=== PATIENT | male | born 1955 ===

== ENCOUNTER 2016-12-22 06:37 | Observation (INO) | payer OTHER ==
[2016-12-22 06:38] VITALS: BMI 23.6
--- NOTE | 2016-12-22 08:17 | ED PDOC ---
Lower Extremity Pain/Injury Time Seen by Provider: 12/22/16 07:03 Chief Complaint (Nursing): Lower Extremity Problem/Injury Chief Complaint (Provider): right ankle History Per: Patient History/Exam Limitations: no limitations Onset/Duration Of Symptoms: Days (x 1) Current Symptoms Are (Timing): Still Present Additional Complaint(s): Sivakumar Wall is a 61 year old male, with a previous medical history of hypertension and hypercholesterolemia, who presents to the ED with complaints of not being able to bend his right ankle after missing a step yesterday. Patient reports landing on his foot in a hyperextended position and hearing a pop. He denies any pain to the leg or foot. Of note, patient reports undergoing tendonitis of the right ankle 1 year ago. PMD: none provided Past Medical History Reviewed: Historical Data, Nursing Documentation, Vital Signs Vital Signs: Last Vital Signs Temp 97.9 F 12/22/16 06:51 Pulse 87 12/22/16 06:51 Resp 16 12/22/16 06:51 BP 160/91 H 12/22/16 06:51 Pulse Ox 99 12/22/16 06:51 - Medical History PMH: Anemia, Arthritis, Asthma, HTN, Hypercholesterolemia, Hyperlipidemia, Rheumatoid Arthritis Denies: Chronic Kidney Disease - Surgical History Surgical History: Endoscopy - Family History Family History: States: Unknown Family Hx - Home Medications Home Medications: Ambulatory Orders Medication Instructions Recorded Esomeprazole Magnesium [Nexium] 40 mg PO DAILY 04/29/15 Montelukast [Singulair] 10 mg PO DAILY 04/29/15 Tramadol Hydrochloride [Tramadol] 50 mg PO DAILY PRN 04/29/15 Zolpidem Tartrate [Ambien] 5 mg PO DAILY 04/29/15 Cephalexin [cephalexin] 500 mg PO TID 11/01/15 Cyclobenzaprine [Flexeril] 10 mg HS 11/01/15 Methylprednisolone [Medrol Dose 4 mg PO ASDIR 11/01/15 Pack (21 tabs)] Omega3,5,6,7,9 No.1/Drew Oil 1 mg ASDIR 11/01/15 [Complete Felch Softgel] Oxycodone HCl/Acetaminophen 1 mg PO Q6 PRN 11/01/15 [Percocet 5-325 mg Tablet] Ciprofloxacin HCl [Cipro] 500 mg PO BID 10 Days 03/16/16 Cyclobenzaprine [Cyclobenzaprine 10 mg PO TID #12 tab 08/03/16 HCl] Naproxen [Naprosyn] 500 mg PO Q12H #20 tab 08/03/16 - Allergies Allergies/Adverse Reactions: Allergies Allergy/AdvReac Type Severity Reaction Status Date / Time No Known Allergies Allergy Verified 08/03/16 08:51 Review of Systems ROS Statement: Except As Marked, All Systems Reviewed And Found Negative Musculoskeletal: Positive for: Other (unable to bend right ankle ) Physical Exam - Reviewed Nursing Documentation Reviewed: Yes Vital Signs Reviewed: Yes - Physical Exam Appears: Positive for: Well, Non-toxic, No Acute Distress Skin: Positive for: Normal Color, Warm, Dry Cardiovascular/Chest: Positive for: Regular Rate, Rhythm Respiratory: Positive for: CNT, Normal Breath Sounds Extremity: Positive for: Capillary Refill (< 2 seconds ), Other (Anton test positive right ankle ). Negative for: Tenderness, Calf Tenderness, Deformity, Swelling Neurologic/Psych: Positive for: Alert, Oriented - Laboratory Results Result Diagrams: 12/22/16 11:09 - ECG O2 Sat by Pulse Oximetry: 99 (RA) Pulse Ox Interpretation: Normal - Other Rad XR R ankle X-Ray: Read By Radiologist (No evidence of acute fracture or dislocation.) - CT Scan/US MRI R foot Other Rad Studies (CT/US): Radiology Report Reviewed (Findings consistent with Achilles tendon rupture approximately 3.9 centimeter proximal to the insertion site with mild retraction of the Achilles tendon by approximately 2.6 centimeter. Small to moderate amount right ankle joint effusion.) Medical Decision Making Medical Decision Making: Initial Impression: Achilles tendon tear Initial Plan: * x-ray right ankle * reevaluation Scribe Attestation: Documented by Kailyn Nix, acting as a scribe for Kailyn Escobedo MD. Provider Scribe Attestation: All medical record entries made by the Scribe were at my direction and personally dictated by me. I have reviewed the chart and agree that the record accurately reflects my personal performance of the history, physical exam, medical decision making, and the department course for this patient. I have also personally directed, reviewed, and agree with the discharge instructions and disposition.
--- NOTE | 2016-12-22 10:29 | CP.PCM.CON ---
History of Present Illness - History of Present Illness History of Present Illness: 61 y/o male with a pmhx of HTN and Hypercholesterolemia seen at bedside in the ED after podiatry consultation for right ankle injury. Patient states that yesterday he missed a step walking down the stairs and hypextended his ankle. He states that he heard a pop and has been having pain ambulating on his right extremity ever since. Patient states that last year he had surgery for achilles tendinitis on the same ankle by Dr. Boston. Patient states that he has not eaten or drank anything today. He denies any n/f/v/d/c/sob. Patient denies any other trauma or injuries. pmhx: HTN, Hypercholesterolemia pshx: R foot and ankle surgery 10/25 SH: 1ppd smoker x 30 years (quit 5 years ago) All: NKDA Review of Systems - Constitutional Constitutional: As Per HPI Past Patient History - Past Medical History & Family History Past Medical History?: Yes - Past Social History Smoking Status: Former Smoker - CARDIAC Hx Hypercholesterolemia: Yes Hx Hypertension: Yes - PULMONARY Hx Asthma: Yes - NEUROLOGICAL Hx Neurological Disorder: No - HEENT Hx HEENT Problems: No - RENAL Hx Chronic Kidney Disease: No - ENDOCRINE/METABOLIC Hx Endocrine Disorders: No - HEMATOLOGICAL/ONCOLOGICAL Hx Anemia: Yes - INTEGUMENTARY Hx Dermatological Problems: No - MUSCULOSKELETAL/RHEUMATOLOGICAL Hx Arthritis: Yes Hx Rheumatoid Arthritis: Yes - GASTROINTESTINAL Hx Gastrointestinal Disorders: No - GENITOURINARY/GYNECOLOGICAL Hx Genitourinary Disorders: No - PSYCHIATRIC Hx Psychophysiologic Disorder: No Hx Substance Use: No - SURGICAL HISTORY Hx Musculoskeletal Surgery: Yes (BUNIONECTOMY LEFT FOOT) - ANESTHESIA Hx Anesthesia: Yes Hx Anesthesia Reactions: No Hx Malignant Hyperthermia: No Meds Allergies/Adverse Reactions: Allergies Allergy/AdvReac Type Severity Reaction Status Date / Time No Known Allergies Allergy Verified 08/03/16 08:51 Physical Exam - Constitutional Appears: Well, Non-toxic, No Acute Distress - Extremities Exam Additional comments: Vasc: palpable pedal pulses bilaterally, TG wnl, CFT < 3 sec to all digits neuro: grossly intact derm: mild localized edema to posterior right ankle, no erythema, no echymoses, no open lesions, no acute clinical signs of infection ortho: palpable dell posterior ankle 6 cm proximal to insertion of achilles, positive damon test, pain on ankle PF, DF, mild pain on palpation to achilles tendon distally - Neurological Exam Neurological exam: Alert, Oriented x3 - Psychiatric Exam Psychiatric exam: Normal Affect, Normal Mood Results - Vital Signs Recent Vital Signs: Last Vital Signs Temp 97.9 F 12/22/16 06:51 Pulse 87 12/22/16 06:51 Resp 16 12/22/16 06:51 BP 160/91 H 12/22/16 06:51 Pulse Ox 99 12/22/16 08:20 Assessment & Plan - Assessment and Plan (Free Text) Assessment: 61 y/o male seen in the ED for right achilles tendon rupture Plan: patient evaluated and chart reviewed discussed in detail with attending Dr. Boston labs and vitals reviewed X rays show obliteration of kagers triangle with soft tissue edema posterior right ankle MRI shows increased signal intensity in the distal achilles tendon indicating rupture applied huang compression with webril and hazel to RLE Ordered CBC, BMP, chest x ray, EKG, PT,PTT for medical clearance discussed in detail the possibility of surgical intervention, explained all the risks, benefits, complications of conservative vs. surgical intervention patient to go to OR either today or tomorrow for repair of right achilles tendon pending medical optimization
--- NOTE | 2016-12-22 10:34 | MRI ---
PROCEDURE: MRI of the right foot without contrast. HISTORY: Achilles tendon injury COMPARISON: Comparison is made to the previous study dated 04/23/2015 TECHNIQUE: Sagittal coronal and axial MRI images of the right proximal foot were obtained without IV contrast administration. FINDINGS: There is right Achillis tendon complete tear with mild retraction of the proximal portion of the tendon. The tear is seen approximately 3.9 centimeter proximal to the Achillis insertion site. . No evidence of bone marrow edema to suggest bone contusion or fracture. There is small right ankle joint effusion noted. Small amount of fluid seen at the posterior tibialis tendon suggestive of mild tendinopathy. Subcutaneous inflammatory changes seen at the posterior aspect of the right ankle. IMPRESSION: Findings consistent with Achilles tendon rupture approximately 3.9 centimeter proximal to the insertion site with mild retraction of the Achilles tendon by approximately 2.6 centimeter. Small to moderate amount right ankle joint effusion.
[2016-12-22] MEDS ORDERED: Propofol 10 mg/ml Inj (20 ML) ONE (11:09)
[2016-12-22] MEDS ORDERED: Midazolam 2 MG/2 ML VIAL ONE (11:09)
[2016-12-22 11:31] LABS: BASO % 0.6 % (0.0-2.0); EOS # 0.2 K/uL (0.0-0.7); EOS % 3.5 % (0.0-4.0); HEMATOCRIT 45.8 % (35.0-51.0); LYMPH # 1.8 K/uL (1.0-4.3); LYMPH % 33.9 % (20.0-40.0); MEAN CORPUSCULAR HEMOGLOBIN 30.8 pg (27.0-31.0); MEAN CORPUSCULAR HGB CONC 34.2 g/dL (33.0-37.0); MEAN PLATELET VOLUME 8.4 fl (7.2-11.7); MONO # 0.4 K/uL (0.0-0.8); MONO % 8.2 % (0.0-10.0); NEUT # 2.9 K/uL (1.8-7.0); NEUT % 53.8 % (50.0-75.0); NRBC % 0.1 % (0.0-0.0); RED CELL DISTRIBUTION WIDTH 13.4 % (11.5-14.5); WHITE BLOOD COUNT 5.5 K/uL (4.8-10.8)
--- NOTE | 2016-12-22 11:33 | RAD ---
PROCEDURE: Right Ankle Radiographs. HISTORY: Ankle injury COMPARISON: None FINDINGS: BONES: Normal. No fracture. JOINTS: Normal. No osteoarthritis. Ankle mortise maintained. Talar dome intact SOFT TISSUES: Normal. OTHER FINDINGS: Two screws are seen at the distal portion of the 1st metatarsal bone. IMPRESSION: No evidence of acute fracture or dislocation.
--- NOTE | 2016-12-22 11:44 | RAD ---
HISTORY: OR COMPARISON: Comparison is made to 08/08/2015 FINDINGS: LUNGS: No evidence of new infiltrate or consolidation in the lungs. PLEURA: No significant pleural effusion identified, no pneumothorax apparent. CARDIOVASCULAR: Normal. OSSEOUS STRUCTURES: No significant abnormalities. VISUALIZED UPPER ABDOMEN: Normal. OTHER FINDINGS: None. IMPRESSION: No active disease.
[2016-12-22 11:47] LABS: ALB/GLOB RATIO 1.6 (1.0-2.1); ALKALINE PHOSPHATASE 65 U/L (38-126); ALT/SGPT 39 U/L (21-72); AST/SGOT 41 U/L (17-59); BLOOD UREA NITROGEN 13 mg/dl (9-20); CALCIUM 9.1 mg/dL (8.4-10.2); CARBON DIOXIDE 28 mmol/L (22-30); CHLORIDE 102 mmol/L (98-107); GFR AFRICAN-AMERICAN > 60; GLUCOSE,RANDOM 80 mg/dL (75-110); POTASSIUM 4.3 MMOL/L (3.6-5.0); SODIUM 139 mmol/l (132-148); TOTAL PROTEIN 7.7 G/DL (6.3-8.2)
[2016-12-22 11:48] LABS: PARTIAL THROMBOPLASTIN TIME 31.5 Seconds (25.6-37.1)
[2016-12-22] MEDS ORDERED: ceFAZolin 1 GM in Sodium Chloride 0.9% 100 ML IVPB ONE (12:11)
[2016-12-22] MEDS ORDERED: Bupivacaine 0.5% 50 ML IJ ONE (12:11)
[2016-12-22] MEDS ORDERED: Sodium Chloride 0.9% 500 ML IV SCH (12:15)
--- NOTE | 2016-12-22 12:20 | CP.PCM.HP ---
History of Present Illness - History of Present Illness History of Present Illness: 61 yr old M presented to ED with complaint of right foot limp s/p injury to right heel after he missed a step going down stairs in his home last night. Reports he he heard a "pop" when he missed the step, began to limp favoring the right foot, did not have any pain at that time and continued to ambulate with a limp. He began have pain with ambulation and used a right foot walking boot which he had at home from right ankle and foot surgery he had in 2016 for Hallus Abducto Valgus (HAV) correction and achilles tendon debridement with [place]. He came to ED this AM as he had no improvement in his symptoms overnight. He denies chest pain, SOB, weakness, nausea, dizziness or numbness/ tingling down his Patient has PMHx of HTN, hyperlipidemia, right achilles tendonitis and bilateral HAV, repeat detected HIV RNA viral load (viral load below lower limit of quantitation for assay on 09/30/16). Patient did not eat anything today. PMD: Luca Mcfadden (last appt 3 wks ago) Specialists: Dr. Boston -Podiatry PMHx: HTN, hyperlipidemia, right achilles tendonitis and bilateral HAV, repeat detected HIV RNA viral load (viral load below lower limit of quantitation for assay on 09/30/16) PSurgHx: Hallus Abducto Valgus (HAV) correction and achilles tendon debridement with [facility] in 2016, left HAV in 2012 SocHx: former smoker (quit 5 yrs ago with 20 pack years), denies Etoh and drugs FMHx: noncontributory Meds: Amlodipine 5mg PO QD, Zolpidem 10mg PO QD, Pantoprazole 40mg PO QD, Terazosin 1 mg PO QD, Gabapentin 300mg PO QD Allergies: NKDA ED course: -Right foot xray: No evidence of acute fracture or dislocation, two screws in distal portion of 1st metatarsal bone -Right foot MRI without contrast: complete tear of achilles tendon (see full report) -EKG-pending -CXR- no active disease -Labs: CBC wnl, CMP wnl, coags wnl Present on Admission - Present on Admission Any Indicators Present on Admission: No History of DVT/PE: No History of Uncontrolled Diabetes: No Urinary Catheter: No Decubitus Ulcer Present: No Review of Systems - Review of Systems All systems: reviewed and no additional remarkable complaints except (what is mentioned in HPI) Past Patient History - Past Medical History & Family History Past Medical History?: Yes - Past Social History Smoking Status: Former Smoker - CARDIAC Hx Hypercholesterolemia: Yes Hx Hypertension: Yes - PULMONARY Hx Asthma: Yes - NEUROLOGICAL Hx Neurological Disorder: No - HEENT Hx HEENT Problems: No - RENAL Hx Chronic Kidney Disease: No - ENDOCRINE/METABOLIC Hx Endocrine Disorders: No - HEMATOLOGICAL/ONCOLOGICAL Hx Anemia: Yes - INTEGUMENTARY Hx Dermatological Problems: No - MUSCULOSKELETAL/RHEUMATOLOGICAL Hx Arthritis: Yes Hx Rheumatoid Arthritis: Yes - GASTROINTESTINAL Hx Gastrointestinal Disorders: No - GENITOURINARY/GYNECOLOGICAL Hx Genitourinary Disorders: No - PSYCHIATRIC Hx Psychophysiologic Disorder: No Hx Substance Use: No - SURGICAL HISTORY Hx Musculoskeletal Surgery: Yes (BUNIONECTOMY LEFT FOOT) - ANESTHESIA Hx Anesthesia: Yes Hx Anesthesia Reactions: No Hx Malignant Hyperthermia: No Meds Allergies/Adverse Reactions: Allergies Allergy/AdvReac Type Severity Reaction Status Date / Time No Known Allergies Allergy Verified 08/03/16 08:51 Physical Exam - Constitutional Appears: Well, No Acute Distress - Head Exam Head Exam: ATRAUMATIC, NORMOCEPHALIC - Eye Exam Eye Exam: EOMI, PERRL - ENT Exam ENT Exam: Mucous Membranes Moist - Neck Exam Neck exam: Positive for: Full Rom. Negative for: Lymphadenopathy - Respiratory Exam Respiratory Exam: Clear to Auscultation Bilateral, NORMAL BREATHING PATTERN. absent: Rales, Rhonchi - Cardiovascular Exam Cardiovascular Exam: REGULAR RHYTHM, +S1, +S2 - GI/Abdominal Exam GI & Abdominal Exam: Normal Bowel Sounds, Soft. absent: Distended - Extremities Exam Extremities exam: Positive for: full ROM, pedal edema (right foot mild edema and tenderness to palpation in posterior ankle, mild tenderness with dorsiflexion and plantarflexion, positive [place] test) - Back Exam Back exam: absent: CVA tenderness (L), CVA tenderness (R) - Neurological Exam Neurological exam: Alert, CN II-XII Intact, Oriented x3 - Psychiatric Exam Psychiatric exam: Normal Affect, Normal Mood Results - Vital Signs Recent Vital Signs: Last Vital Signs Temp 97.9 F 12/22/16 06:51 Pulse 87 12/22/16 06:51 Resp 16 12/22/16 06:51 BP 160/91 H 12/22/16 06:51 Pulse Ox 99 12/22/16 08:20 - Labs Result Diagrams: 12/22/16 11:09 12/22/16 11:09 Assessment & Plan - Assessment and Plan (Free Text) Assessment: 61 yr old M admitted for right achilles tendon rupture, was evaluated by orthopedics in ER and is going for right achilles tendon repair today. Patient has PMHx of HTN, hyperlipidemia, right achilles tendonitis and bilateral HAV, repeat detected HIV RNA viral load (viral load below lower limit of quantitation for assay on 09/30/16). His vital signs are stable, EKG and CXR today are wnl, CBC and CMP wnl as well. Patient is medically cleared for right achilles tendon repair. Plan: 1. Right Achilles Tendon Rupture s/p mechanical slip on stairs -acute, stable -MRI right foot without contrast: complete tear right achilles tendon (see full report) -Right foot xray: no acute fractur or dislocation (see full report) -NPO, EKG CXR CBC CMP and coags wnl -Orthopedic consult appreciated: will follow recommendations -pt going to OR today for repair 2. Hypertension -controlled -medications held for now, will resume home meds after surgery 3. Hyperlipidemia -controlled, lipids wnl on 09/30/16 -no medications at this time 4. DVT prophylaxis -patient was ambulating with right foot walking boot -will consider after surgery - Date & Time Date: 12/22/16 Time: 11:30
[2016-12-22] MEDS ORDERED: Succinylcholine 200 mg/10 ml Inj IV ONE (12:49)
[2016-12-22] MEDS ORDERED: Lidocaine Hydrochloride 5 ML INJ ONE (12:50)
[2016-12-22] MEDS ORDERED: Lidocaine 4% (Laryng-O-Jet) Kit MM ONE (12:50)
[2016-12-22] MEDS ORDERED: Bupivacaine 0.5% Inj(30mL) ONE (12:58)
[2016-12-22] MEDS ORDERED: MethylPREDNISolone Depo 40 mg/ml Inj ONE (12:58)
[2016-12-22] MEDS ORDERED: Lidocaine 1% Inj (20ml) ONE (12:58)
[2016-12-22] MEDS ORDERED: Lactated Ringer's 1,000 ML IV ONE (13:29)
[2016-12-22] MEDS ORDERED: ePHEDrine 50 mg/ml Inj ONE (14:32)
[2016-12-22] MEDS ORDERED: Ropivacaine 0.5% 30ML IV ONE (14:52)
[2016-12-22] MEDS ORDERED: HYDROmorphone 0.5 mg/0.5 ml ISec IVP PRN (16:19)
[2016-12-22] MEDS ORDERED: Lactated Ringer's 1,000 ML IV SCH (16:19)
--- NOTE | 2016-12-22 16:20 | PCM.SURG1 ---
Surgeon's Initial Post Op Note - Surgeon's Notes Surgeon: Dr. Boston Supervisor [employer]: Dr. Lara, Dr. Kennedy, Dr. Monroe Type of Anesthesia: General Mask Anesthesia Administered By: Dr. Ramos Pre-Operative Diagnosis: R achilles tendon rupture Operative Findings: see dictation Post-Operative Diagnosis: right achilles tendon rupture Operation Performed: right achilles tendon repair Specimen/Specimens Removed: bone and soft tissue Estimated Blood Loss: EBL {In ML}: 10 Blood Products Given: N/A Drains Used: No Drains Post-Op Condition: Good Date of Surgery/Procedure: 12/22/16 Time of Surgery/Procedure: 14:00
[2016-12-22] MEDS ORDERED: Oxycodone/Acetaminophen 5/325 mg Tab PO PRN ×2 (16:21)
--- NOTE | 2016-12-22 18:48 | PCM.ANESB2 ---
Popliteal Nerve Block - Popliteal Nerve Block Date of Procedure: 12/22/16 Anesthesiologist: Dr. Ramos Pre-Procedure Diagnosis: repair of right achilles tendon Post-Procedure Diagnosis: repair of right achilles tendon Procedure Performed: Popliteal Nerve Block Right - Procedure Popliteal Nerve Block: This procedure was explained to the patient that it is for post-operative pain management. Consent was obtained after a thorough discussion with the patient regarding the benefits and possible complications of local anesthetic block of the sciatic nerve at the popliteal level. The patient was brought to the operating room and standard monitors are applied. Time-out was held with the circulating nurse to confirm the correct surgery and the appropriate block. After the surgery while still under general anesthesia, patient's operative leg was gently raised and supported and the groove in between the biceps femoris and vastus lateralis muscles was carefully palpated. The skin approximately 8cm above the popliteal crease was then marked. The ultrasound transducer was then applied to the posterior thigh approximately 8cm above the popliteal crease in the transverse plane and the sciatic nerve before its division was visualized lateral to the popliteal artery and in between the bicep femoris and semimembranosus/semitendinosus muscles. After identification, the lateral portion of the thigh was prepped with Chloraprep solution. At this point, a # 21 gauge Stimuplex insulated 4 inch needle was inserted into pre-marked area and advanced in a perpendicular direction. The needle was inserted above the ultrasound transducer in-plane towards the sciatic nerve in a [id number] direction. Needle advancement was performed carefully under direct ultrasound visualization. Nerve stimulator was used and dorsiflexion of the left foot was elicited at a current of 0.3 MA. After repeated negative aspiration, 5cc of 0.5% Ropivacaine was injected and this was flowed with 15cc of 0.5% Ropivacaine. Under ultrasound guidance the local anesthetics were observed tenting the epidural sheath and surrounding the roots of the sciatic nerve. The needle was removed intact and sterile dressing was applied. The patient tolerated the popliteal nerve block well with stable vital signs and was awaken from anesthesia. Patient was transported to PACU in stable condition.
[2016-12-23] MEDS ORDERED: Alum-Mag Hydrox-Simethicone Susp (30 mL) PO ONE (03:11)
--- NOTE | 2016-12-23 05:09 | CP.PCM.PCO ---
Addendum Addendum: 12/23/16 04:55 CC: Called for RUQ Pain 61M s/p achilles tendon repair with acute complaint of RUQ pain along lower rib edge. Unfortunately, the patient is declining to elaborate further on the character. Instead he is saying "I'm not supposed to be here" and states he "doesn't want to be rude" but "thank you and good day". Of note prior eval pt denied N/V, radiation of pain, dysuria, back pain, SOB, chest pain. AVSS Voiding Tolerating PO A/P: POD#1 s/p RIGHT Achilles tendon repair with popliteal block with inexplicable RUQ pain not relieved by Mylanta, hemodynamically stable, and PMH non-contributory. Suspect musculoskeletal. - Toradol 30mg, IV, ONCE - Re-eval
[2016-12-23] MEDS ORDERED: Enoxaparin 40 mg Syringe SC STA (08:31)
[2016-12-23 08:52] VITALS: BP 135/78; PULSE 72; RESP 18; TEMP 98; O2SAT 98
--- NOTE | 2016-12-23 09:34 | CP.PCM.PN ---
Subjective - Date & Time of Evaluation Date of Evaluation: 12/23/16 Time of Evaluation: 09:32 - Subjective Subjective: 61 y/o male seen at bedside 1 day s/p Right achilles tendon repair. Patient states taht he had difficulty sleeping last night. Patient states that his pain is well controlled but he is very tired. He denies any other acute events overnight. Patient's RLE is elevated on pillows with ice behind his knee. Splint remains c/d/i. Patient has been eating and voiding normally. He denies any other n/f/v/d/c/sob. Objective - Vital Signs/Intake and Output Vital Signs (last 24 hours): Temp Pulse Resp BP Pulse Ox 98.0 F 72 18 135/78 98 12/23/16 08:30 12/23/16 08:30 12/23/16 08:30 12/23/16 08:30 12/23/16 08:30 - Medications Medications: Current Medications Acetaminophen (Tylenol 325mg Tab) 650 mg PO Q4 PRN PRN Reason: Pain, Mild (1-3) Sodium Chloride (Sodium Chloride 0.9%) 500 mls @ 100 mls/hr IV .Q5H KRISHNA Lactated Ringer's (Lactated Ringer's) 1,000 mls @ 100 mls/hr IV .Q10H KRISHNA Oxycodone/Acetaminophen (Percocet 5/325 Mg Tab) 1 tab PO Q4 PRN PRN Reason: Pain, moderate (4-7) Stop: 12/25/16 16:22 Last Admin: 12/23/16 00:55 Dose: 1 tab Oxycodone/Acetaminophen (Percocet 5/325 Mg Tab) 2 tab PO Q4 PRN PRN Reason: Pain, severe (8-10) Stop: 12/25/16 16:22 - Labs Labs: 12/22/16 11:09 12/22/16 11:09 PT 11.6 Seconds (9.8-13.1) 12/22/16 11:09 INR 1.0 (0.9-1.2) 12/22/16 11:09 APTT 31.5 Seconds (25.6-37.1) 12/22/16 11:09 - Constitutional Appears: Well, Non-toxic, No Acute Distress - Extremities Exam Additional comments: RLE: CFT < 3 sec to all digits, able to wiggle toes splint clean,dry,intact no calf pain or tenderness - Neurological Exam Neurological Exam: Alert, Awake, Oriented x3 - Psychiatric Exam Psychiatric exam: Normal Affect, Normal Mood Assessment and Plan - Assessment and Plan (Free Text) Assessment: 61 y/o male seen at bedside 1 day s/p right achilles tendon repair Plan: patient evaluated and chart reviewed discussed in detail with attending Dr. Boston labs and vitals reviewed; afebrile posterior splint remains c/d/i to RLE continue Ice, elevation continue nonweightbearing with crutches cont. pain medication prn Rx lovenox 40mg SC daily injections x 10 day nursing communication to teach proper use of lovenox injections patient stable from podiatry standpoint patient to follow up with Dr. Boston as outpatient 1 week
--- NOTE | 2016-12-23 09:53 | CP.PCM.DIS ---
Provider - Provider Date of Admission: 12/22/16 08:52 Attending physician: Natacha Ruiz MD Primary care physician: Luca Mcfadden M.D Consults: -Podiatry Time Spent in preparation of Discharge (in minutes): 30 Diagnosis - Discharge Diagnosis (1) Achilles tendon rupture Status: Acute Priority: Medium Hospital Course - Lab Results Lab Results: Most Recent Lab Values WBC 5.5 K/uL (4.8-10.8) 12/22/16 11:09 RBC 5.08 Mil/uL (4.40-5.90) 12/22/16 11:09 Hgb 15.6 g/dL (12.0-18.0) 12/22/16 11:09 Hct 45.8 % (35.0-51.0) 12/22/16 11:09 MCV 90.0 fl (80.0-94.0) 12/22/16 11:09 MCH 30.8 pg (27.0-31.0) 12/22/16 11:09 MCHC 34.2 g/dL (33.0-37.0) 12/22/16 11:09 RDW 13.4 % (11.5-14.5) 12/22/16 11:09 Plt Count 172 K/uL (130-400) 12/22/16 11:09 MPV 8.4 fl (7.2-11.7) 12/22/16 11:09 Neut % (Auto) 53.8 % (50.0-75.0) 12/22/16 11:09 Lymph % (Auto) 33.9 % (20.0-40.0) 12/22/16 11:09 [place] % (Auto) 8.2 % (0.0-10.0) 12/22/16 11:09 Eos % (Auto) 3.5 % (0.0-4.0) 12/22/16 11:09 Baso % (Auto) 0.6 % (0.0-2.0) 12/22/16 11:09 Neut # 2.9 K/uL (1.8-7.0) 12/22/16 11:09 Lymph # 1.8 K/uL (1.0-4.3) 12/22/16 11:09 [place] # 0.4 K/uL (0.0-0.8) 12/22/16 11:09 Eos # 0.2 K/uL (0.0-0.7) 12/22/16 11:09 Baso # 0.0 K/uL (0.0-0.2) 12/22/16 11:09 PT 11.6 Seconds (9.8-13.1) 12/22/16 11:09 INR 1.0 (0.9-1.2) 12/22/16 11:09 APTT 31.5 Seconds (25.6-37.1) 12/22/16 11:09 Sodium 139 mmol/l (132-148) 12/22/16 11:09 Potassium 4.3 MMOL/L (3.6-5.0) 12/22/16 11:09 Chloride 102 mmol/L (98-107) 12/22/16 11:09 Carbon Dioxide 28 mmol/L (22-30) 12/22/16 11:09 Anion Gap 13 (10-20) 12/22/16 11:09 BUN 13 mg/dl (9-20) 12/22/16 11:09 Creatinine 0.8 mg/dL (0.8-1.5) 12/22/16 11:09 Est GFR ( Amer) > 60 12/22/16 11:09 Est GFR (Non-Af Amer) > 60 12/22/16 11:09 Random Glucose 80 mg/dL (75-110) 12/22/16 11:09 Calcium 9.1 mg/dL (8.4-10.2) 12/22/16 11:09 Total Bilirubin 1.0 mg/dl (0.2-1.3) 12/22/16 11:09 AST 41 U/L (17-59) 12/22/16 11:09 ALT 39 U/L (21-72) 12/22/16 11:09 Alkaline Phosphatase 65 U/L (38-126) 12/22/16 11:09 Total Protein 7.7 G/DL (6.3-8.2) 12/22/16 11:09 Albumin 4.7 g/dL (3.5-5.0) 12/22/16 11:09 Globulin 3.0 gm/dL (2.2-3.9) 12/22/16 11:09 Albumin/Globulin Ratio 1.6 (1.0-2.1) 12/22/16 11:09 Blood Type O POSITIVE 12/22/16 11:09 Blood Type Confirm O POSITIVE 12/22/16 11:31 Antibody Screen Negative 12/22/16 11:09 BBK History Checked No verified bt 12/22/16 11:09 - Hospital Course Hospital Course: 61 yr old M admitted for acute right achilles tendon rupture, is POD #1 s/p repair of right achilles tendon. Patient is stable, no acute events overnight, afebrile. Will follow up with Dr. Boston as outpatient in 1 week and with his PMD Dr. Bryant within 1-2 weeks. Patient was discharged with Rx for Keflex 500mg PO TID x 7days, Lovenox 40mg SC QD x 10days, Percocet 1 tab PO Q4-6 PRN for pain. - Date & Time of H&P Date of H&P: 12/22/16 Time of H&P: 11:19 Discharge Exam - Head Exam Head Exam: ATRAUMATIC, NORMOCEPHALIC - Eye Exam Eye Exam: EOMI, PERRL - ENT Exam ENT Exam: Mucous Membranes Moist - Neck Exam Neck exam: Full Rom - Respiratory Exam Respiratory Exam: Clear to PA & Lateral, NORMAL BREATHING PATTERN - Cardiovascular Exam Cardiovascular Exam: REGULAR RHYTHM, +S1, +S2 - Extremities Exam Extremities exam: normal capillary refill (throughout, right foot in splint (c/d /i), can wiggle all toes) - Back Exam Back exam: absent: CVA tenderness (L), CVA tenderness (R) - Neurological Exam Neurological exam: Alert, CN II-XII Intact, Oriented x3 - Psychiatric Exam Psychiatric exam: Normal Affect, Normal Mood - Skin Skin Exam: Dry, Intact, Normal Color, Warm Discharge Plan - Discharge Medications Prescriptions: Cephalexin [Keflex] 500 mg PO TID 7 Days oxyCODONE/Acetaminophen [Percocet 5/325 mg Tab] 1 tab PO Q4 PRN #30 tab PRN Reason: Pain, Moderate (4-7) - Follow Up Plan Condition: STABLE Disposition: HOME/ ROUTINE Instructions: Achilles Tendon Rupture (GEN), Achilles Tendon Repair (DC) Additional Instructions: -Follow up with Dr. Boston within 1 week. -Follow up with your PMD within 1 week. Referrals: Chi Botson MD [Staff Provider] -
--- NOTE | 2016-12-23 11:52 | RAD ---
PROCEDURE: Right Ankle Radiographs. HISTORY: Follow-up right ankle surgery. Status post repair right Achilles tendon rupture. COMPARISON: December 22, 2016. FINDINGS: BONES: Normal. No fracture. JOINTS: Normal. No osteoarthritis. Ankle mortise maintained. Talar dome intact SOFT TISSUES: Expected postoperative findings status post Achilles tendon repair. OTHER FINDINGS: None. IMPRESSION: Satisfactory postoperative status. Detail obscured by overlying fiberglass cast. The
--- NOTE | 2016-12-23 15:32 | CARD ---
APPROVED REPORT EKG Measurement Heart [id number] VT [id number] <Conclusion> Normal sinus rhythm Normal ECG
--- NOTE | 2016-12-28 00:28 | OP ---
PROCEDURE DATE: 12/22/2016 SURGEON: Chi Boston DPM WINDOWS MOBILE DEVELOPER: Zuri Ramsay, PGY-3 ANESTHESIA: General anesthesia with popliteal block. PREOPERATIVE DIAGNOSES: Complete Achilles tendon rupture, right. POSTOPERATIVE DIAGNOSES: Complete Achilles tendon rupture, right. NAME OF PROCEDURE: Primary repair of Achilles tendon rupture with the use of Arthrex graft and resec tion of calcaneal exostosis, right. INDICATIONS: The patient is a 61-year-old male who suffered a right Achilles tendon rupture last ezekiel maria antonia. The patient states that he was stepping off a curb when he felt a pop and could no longer move d and ankle. MRI confirmed a complete rupture of the patient's Achilles tendon. The patient is now requesting surgical intervention. The patient signed the consent after careful explanation of all ri sks, benefits, complications and alternatives for surgical procedure. No guarantees were given nor i mplied. PREPARATION: The patient was brought into the room, and after being placed under general anesthesia, a thigh tourniquet was applied to the patient's right thigh. Next, the patient was placed on the op erating room table in the prone position. At this time, the patient's right lower extremity was then prepped and draped in usual sterile manner. At this time, the patient's right lower extremity was t hen exsanguinated with Esmarch and the pneumatic thigh tourniquet was inflated to 350 mmHg and the pr ocedure began. PROCEDURE #1: Primary repair of right Achilles tendon rupture with use of Arthrex FiberWire, as well as Arthrex graft and resection of calcaneal exostosis. Attention was directed to the posterior aspect of the patient's right calf. The insertion of the pat ient's right Achilles was palpated along with the borders of the Achilles tendon itself and the gastr oc soleus aponeurosis. At this time, utilizing a #15 blade, a 10 cm linear longitudinal incision was created essentially overlying the patient's Achilles tendon and extending distally to the level of i ts insertion. The incision was deepened through subcutaneous tissue with care being taken to identif y and retract all vital neurovascular structures. All bleeders were cauterized and ligated as necess guille. At this time, blunt dissection was carried down to the level of the Achilles tendon, which was noticed to be completely ruptured approximately 4 cm proximal to the insertion. Utilizing a #15 blad e, a linear longitudinal incision was created through the paratenon layer, and the paratenon was care fully resected free of the Achilles attachment and reflected medially and laterally, exposing the Ach illes tendon in its entirety into the operative field. At this time, attention was directed distally to the insertion of the Achilles, where under fluoroscopy it was noted that a calcaneal exostosis wa s present. Utilizing a #15 blade, the distal aspect of the rupture was carefully partially reflected off of the calcaneus to expose the calcaneal exostosis into the operative field. Next, utilizing a sagittal saw, the calcaneal exostosis was resected and passed from the operative field. All rough ed ges were then smoothed with a bone rasp. Attention was then directed to the proximal stump where uti lizing a 2-0 FiberWire, a stitch was started at the most proximal aspect of the Achilles tendon and c arried distally in a [place] stitch manner with the last stitch passing out of the end of the proximal part of the tear. This stitch was then completed both laterally and medially with both of the sutur e ends coming out at the area of the rupture to allow for the primary repair. Attention was then dir ected to the area of the calcaneus where the calcaneal exostosis had been resected. Utilizing the Ar threx 3.0 SutureTak, 2 Arthrex 3.0 SutureTak were placed at the area of the insertion for the Dave s. Next, the FiberTape from the SutureTak was then fed through the tendon directly over where the Allen tureTaks were placed. This FiberWire was then fed proximally through this distal stump in a Amboy s uture technique. At this time, the FiberTape on the lateral aspect of both the proximal and distal e nds of the repair were then brought together and hand tied with the foot held in a plantarflexed posi tion. The same was then repeated on the medial side. This allowed for the primary repair of the ten don itself. At this time, a smaller 2-0 FiberWire was then used to reinforce the primary repair with simple over and over suture. At this time, the ArthroFlex tendon graft was then placed across the r epair itself and was down at all corners with 2-0 FiberWire. Also 3 simple sutures were placed in the center of the graft to the graft down to the tendon itself and to decrease the chance o f hematoma or seroma formation between the graft and the tendon. Next, the graft was secured to the tendon with a running interlocking stitch on both the distal, proximal, medial and lateral aspects co vering the repair in its entirety. At this time, the incision site was flushed with copious amounts of normal sterile saline. It was verified that the patient's Achilles was now brought back to physio logic tension with the foot held in neutral. Next, the paratenon was reapproximated and coapted util izing 2-0 Vicryl. The deep tissue was then reapproximated and coapted utilizing 3-0 Vicryl. The sub cutaneous tissue was reapproximated and coapted utilizing 4-0 Vicryl and the skin was reapproximated and coapted utilizing 4-0 Monocryl in a running subcuticular technique. The patient's incision site was then dressed in a wet to dry dressing and the patient was placed in a well-padded bivalved below- the-knee cast with the foot held in 5 degrees of plantarflexion in relation to the leg. POSTOPERATIVE CONDITION: The patient tolerated the procedure and anesthesia well and was escorted to recovery with all vital signs stable and neurovascular status intact to the right lower extremity. It is to be noted that the patient will be nonweightbearing with cast and crutches and will follow up with Dr. Boston in his office in a week. Zuri Ramsay DPM Chi Boston DPM cc: [id number] TT: 12/28/2016 00:27:13 ellie
== END 2016-12-23 12:10 | disposition home or self-care (01) ==
LOC: H.ER 06:37 → H.EROBSV 08:52 → OBSVTOIN 10:50 → H.ERHOLD 10:50 → INTOOBSV 10:50 → H.PEDS 18:27
PROVIDERS: ADMIT Family Medicine Geriatric Medicine; ATTEND Family Medicine Geriatric Medicine
DX: S86.011A Strain of right Achilles tendon, initial encounter (principal); I10 Essential (primary) hypertension; J45.909 Unspecified asthma, uncomplicated; E78.5 Hyperlipidemia, unspecified; M06.9 Rheumatoid arthritis, unspecified; E78.00 Pure hypercholesterolemia, unspecified; W10.9XXA Fall (on) (from) unspecified stairs and steps, initial encounter; Z87.891 Personal history of nicotine dependence; Y92.009 Unspecified place in unspecified non-institutional (private) residence as the place of occurrence of the external cause

== ENCOUNTER 2017-08-02 10:44 | Emergency (ER) | payer OTHER ==
[2017-08-02 10:45] VITALS: BMI 23.6
[2017-08-02 10:57] VITALS: BP 107/66; PULSE 63; RESP 16; TEMP 98; O2SAT 96
[2017-08-02] MEDS ORDERED: Sodium Chloride 0.9% 1,000 ML IV STA ×2 (11:13→13:49)
--- NOTE | 2017-08-02 11:19 | ED PDOC ---
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 Lasted about 2min, arrival to ED awake and c/o thirst, mild dizziness. States had stomach pain last week for which he saw his PMD and has GI referral pending. No melena, fever, cough, headache or focal weakness. Hx HIV on HAART had recent MRI for headache for which was told has sinus disease, saw ENT, no antibiotics Against Medical Advice - AMA Patient Left Against Medical Advice: The patient declines admission to the hospital and wishes to leave the Emergency Department. This action is against my medical advice. This decision was made with informed refusal. The patient was told that admission to the hospital is necessary. Explanation of the reasons why were discussed. The risks of leaving were explained to the patient and include, but are not limited to, worsening of known or currently unknown conditions, permanent disability and from undiagnosed or untreated conditions. The patient has the capacity to make this informed decision and understands my explanation of the current medical problem and risks of leaving. The patient voluntarily accepts these risks and signed an AMA form documenting our conversation. The patient was given the opportunity to ask questions and reconsider. The patient was encouraged to return to the Emergency Department at any time for further care. Past Medical History Vital Signs: Last Vital Signs Temp 98.0 F 08/02/17 10:53 Pulse 63 08/02/17 10:53 Resp 16 08/02/17 10:53 BP 107/66 08/02/17 10:53 Pulse Ox 96 08/02/17 15:45 - Medical History PMH: Anemia, Arthritis, Asthma, HIV, HTN, Hypercholesterolemia, Hyperlipidemia, Rheumatoid Arthritis Denies: Chronic Kidney Disease - Surgical History Surgical History: Endoscopy - Family History Family History: States: Unknown Family Hx - Home Medications Home Medications: Ambulatory Orders Medication Instructions Recorded Cholecalciferol [Vitamin D 1000 IU] 1,000 unit PO DAILY 12/22/16 Fexofenadine/Pseudoephedrine 1 tab PO DAILY 12/22/16 [Ghazala-D 24 Hour Tablet] Gabapentin [Neurontin] 300 mg PO HS 12/22/16 Multivitamin [Multi-Vitamin Daily] 1 tab PO DAILY 12/22/16 Pantoprazole Sodium [Protonix] 40 mg PO DAILY 12/22/16 Rosuvastatin Calcium [Crestor] 10 mg PO HS 12/22/16 Terazosin HCl 1 mg PO HS 12/22/16 Zolpidem [Ambien] 10 mg PO HS 12/22/16 amLODIPine [Norvasc] 5 mg PO DAILY 12/22/16 Cephalexin [Keflex] 500 mg PO TID 7 Days capsule 12/23/16 oxyCODONE/Acetaminophen [Percocet 1 tab PO Q4 PRN #30 tab 12/23/16 5/325 mg Tab] - Allergies Allergies/Adverse Reactions: Allergies Allergy/AdvReac Type Severity Reaction Status Date / Time No Known Allergies Allergy Verified 08/03/16 08:51 - Laboratory Results Result Diagrams: 08/02/17 11:27 08/02/17 11:27 - ECG O2 Sat by Pulse Oximetry: 96 Medical Decision Making Medical Decision Making: workup for syncope vs seizure initiated IVF bolus and cardiac monitoring labwork reviewed, no clinically significant abnormalities US abd ordered for upper abd pain' pepcid 20mg IV ordered in addition to additional IVF bolus pt advised tele obs for neuro eval and cardio monitoring but he refused and prefers to followup w his PMD in [facility], [facility]. Accession No. : [id number] Patient Name / ID : BRIANNA FERRARA / [id number] Exam Date : 08/02/2017 12:04:18 ( Approved ) Study Comment : Sex / Age : M / 62Y Creator : Luis Antonio Camejo MD Dictator : Luis Antonio Camejo MD Delivery Man : Infection Prevention Practitioner : Luis Antonio Camejo MD Approver2 : Report Date : 08/02/2017 12:56:59 My Comment : PROCEDURE: CT HEAD WITHOUT CONTRAST. HISTORY: Seizure-like activity COMPARISON: None available. TECHNIQUE: Axial computed tomography images were obtained through the head/brain without intravenous contrast. Radiation dose: Total exam DLP = 924.32 mGy-cm. This CT exam was performed using one or more of the following dose reduction techniques: Automated exposure control, adjustment of the mA and/or kV according to patient size, and/or use of iterative reconstruction technique. FINDINGS: HEMORRHAGE: No intracranial hemorrhageGo. BRAIN: No mass effect or edema. No atrophy or chronic microvascular ischemic changes. VENTRICLES: Unremarkable. No hydrocephalus. CALVARIUM: Unremarkable. PARANASAL SINUSES: Unremarkable as visualized. No significant inflammatory changes. MASTOID AIR CELLS: Unremarkable as visualized. No inflammatory changes. OTHER FINDINGS: None. IMPRESSION: No acute intracranial abnormalities. No significant findings to account for the clinical presentation. Accession No. : [id number] Patient Name / ID : BRIANNA FERRARA / [id number] Exam Date : 08/02/2017 15:02:25 ( Approved ) Study Comment : Sex / Age : M / 62Y Creator : James Torres MD Dictator : James Torres MD Delivery Man : Infection Prevention Practitioner : James Torres MD Approver2 : Report Date : 08/02/2017 15:40:22 My Comment : HISTORY: upper abd pain syncope COMPARISON: None. TECHNIQUE: Sonographic evaluation of the abdomen. FINDINGS: LIVER: Measures 16.2 cm. Normal echogenicity of the liver parenchyma. No mass. No intrahepatic bile duct dilatation. GALLBLADDER: Unremarkable. No gallstones. COMMON BILE DUCT: Measures 5.0 mm. No stones. No dilatation. PANCREAS: The body of the pancreas appears unremarkable remainder obscured by overlying stomach or bowel gas. RIGHT KIDNEY: Measures 10.7cm. Normal echogenicity. No calculus, mass, or hydronephrosis. LEFT KIDNEY: Measures 11.9cm. Normal echogenicity. No calculus, mass, or hydronephrosis. SPLEEN: No focal mass is seen throughout the spleen however the spleen is enlarged to 14.4 cm. AORTA: No aneurysmal dilatation. IVC: Unremarkable. OTHER FINDINGS: None. IMPRESSION: Splenomegaly 14.4 cm with remainder the examination appearing grossly nonfocal. Note, the head neck and tail of the pancreas are obscured by overlying bowel gas as discussed above. pt advised to stay in hospital but again refused. Results explained and possible seizure disorder discussed. States he does not drive. Signed AMA after all risks explained. Sister in ED, to accompany home. Disposition - Clinical Impression Clinical Impression: Syncope, Seizure-like activity, Left against medical advice - Patient ED Disposition Is Patient to be Admitted: No Counseled Patient/Family Regarding: Studies Performed, Diagnosis, Need For Followup, Rx Given - Disposition Referrals: Harman Blank MD [Staff Provider] - Disposition: Against Medical Advice Disposition Time: 15:53 Condition: STABLE Additional Instructions: Return to ER for any return of symptoms Do not drive a car or operate machinery. Instructions: New-Onset Seizure in Adults (ED), Syncope (ED), Against Medical Advice (ED) Forms: [employer] (Romanian)
[2017-08-02 11:37] LABS: BASO % 0.8 % (0.0-2.0); EOS # 0.1 K/uL (0.0-0.7); EOS % 1.7 % (0.0-4.0); HEMOGLOBIN 16.2 g/dL (12.0-18.0); LYMPH # 2.1 K/uL (1.0-4.3); LYMPH % 36.1 % (20.0-40.0); MEAN CELL VOLUME 91.5 fl (80.0-94.0); MEAN CORPUSCULAR HEMOGLOBIN 31.5 pg (27.0-31.0); MEAN CORPUSCULAR HGB CONC 34.4 g/dL (33.0-37.0); MEAN PLATELET VOLUME 8.3 fl (7.2-11.7); MONO # 0.5 K/uL (0.0-0.8); NEUT # 3.1 K/uL (1.8-7.0); NEUT % 53.4 % (50.0-75.0); RBC 5.14 Mil/uL (4.40-5.90); RED CELL DISTRIBUTION WIDTH 12.9 % (11.5-14.5); WHITE BLOOD COUNT 5.8 K/uL (4.8-10.8)
[2017-08-02 11:41] LABS: ALB/GLOB RATIO 1.5 (1.0-2.1); ALBUMIN 4.6 g/dL (3.5-5.0); ALT/SGPT 36 U/L (21-72); AST/SGOT 27 U/L (17-59); BLOOD UREA NITROGEN 15 mg/dl (9-20); CALCIUM 9.3 mg/dL (8.4-10.2); GFR AFRICAN-AMERICAN > 60; GFR NON-AFRICAN AMERICAN > 60
[2017-08-02 11:47] LABS: VENOUS BLOOD GAS BASE EXCESS 1.7 mmol/L (0.0-2.0); VENOUS BLOOD GAS PCO2 42 mmHg (40-60); VENOUS BLOOD GAS PO2 60 mm/Hg (30-55); VENOUS BLOOD PH 7.41 (7.32-7.43)
--- NOTE | 2017-08-02 12:34 | RAD ---
HISTORY: Shortness of breath. COMPARISON: 12/22/2016. FINDINGS: LUNGS: No active pulmonary disease. PLEURA: No significant pleural effusion identified, no pneumothorax apparent. CARDIOVASCULAR: No radiographic findings to suggest acute or significant cardiovascular disease. OSSEOUS STRUCTURES: No significant abnormalities. VISUALIZED UPPER ABDOMEN: Normal. OTHER FINDINGS: None. IMPRESSION: No active disease. No significant interval change compared to the prior examination(s).
--- NOTE | 2017-08-02 12:58 | CT ---
PROCEDURE: CT HEAD WITHOUT CONTRAST. HISTORY: Seizure-like activity COMPARISON: None available. TECHNIQUE: Axial computed tomography images were obtained through the head/brain without intravenous contrast. Radiation dose: Total exam DLP = 924.32 mGy-cm. This CT exam was performed using one or more of the following dose reduction techniques: Automated exposure control, adjustment of the mA and/or kV according to patient size, and/or use of iterative reconstruction technique. FINDINGS: HEMORRHAGE: No intracranial hemorrhageGo. BRAIN: No mass effect or edema. No atrophy or chronic microvascular ischemic changes. VENTRICLES: Unremarkable. No hydrocephalus. CALVARIUM: Unremarkable. PARANASAL SINUSES: Unremarkable as visualized. No significant inflammatory changes. MASTOID AIR CELLS: Unremarkable as visualized. No inflammatory changes. OTHER FINDINGS: None. IMPRESSION: No acute intracranial abnormalities. No significant findings to account for the clinical presentation.
[2017-08-02 13:15] LABS: SQUAMOUS EPITHIAL < 1 /hpf (0-5); URINE BACTERIA RARE (<OCC); URINE BILIRUBIN NEGATIVE (NEGATIVE); URINE BLOOD NEGATIVE (NEGATIVE); URINE CLARITY SLIGHTY-CLOUDY (Clear); URINE COLOR YELLOW (YELLOW); URINE GLUCOSE (UA) NEG (Normal); URINE LEUKOCYTE ESTERASE NEG Leu/uL (Negative); URINE NITRATE NEGATIVE (NEGATIVE); URINE PROTEIN NEGATIVE (NEGATIVE); URINE UROBILINOGEN 0.2-1.0 mg/dL (0.2-1.0)
--- NOTE | 2017-08-02 15:41 | US ---
HISTORY: upper abd pain syncope COMPARISON: None. TECHNIQUE: Sonographic evaluation of the abdomen. FINDINGS: LIVER: Measures 16.2 cm. Normal echogenicity of the liver parenchyma. No mass. No intrahepatic bile duct dilatation. GALLBLADDER: Unremarkable. No gallstones. COMMON BILE DUCT: Measures 5.0 mm. No stones. No dilatation. PANCREAS: The body of the pancreas appears unremarkable remainder obscured by overlying stomach or bowel gas. RIGHT KIDNEY: Measures 10.7cm. Normal echogenicity. No calculus, mass, or hydronephrosis. LEFT KIDNEY: Measures 11.9cm. Normal echogenicity. No calculus, mass, or hydronephrosis. SPLEEN: No focal mass is seen throughout the spleen however the spleen is enlarged to 14.4 cm. AORTA: No aneurysmal dilatation. IVC: Unremarkable. OTHER FINDINGS: None. IMPRESSION: Splenomegaly 14.4 cm with remainder the examination appearing grossly nonfocal. Note, the head neck and tail of the pancreas are obscured by overlying bowel gas as discussed above.
--- NOTE | 2017-08-02 18:23 | CARD ---
APPROVED REPORT EKG Measurement Heart [id number] [place] 166P40 [id number] <Conclusion> Normal sinus rhythm Normal ECG
== END 2017-08-02 15:50 | disposition left against medical advice (07) ==
LOC: H.ER 10:44
DX: R55 Syncope and collapse (principal); E78.00 Pure hypercholesterolemia, unspecified; I10 Essential (primary) hypertension; J45.909 Unspecified asthma, uncomplicated; M06.9 Rheumatoid arthritis, unspecified
CPT/HCPCS: 70450; 71045; 76700; 80053; 81003; 82803; 84484; 85025; 93005; 96361; 96374; 99285; J7040